=== PATIENT | male | born 1945 | race Caucasian/White ===

== ENCOUNTER 2023-02-01 05:30 | Observation (INO) | payer OTHER ==
[~2023-02-01] VITALS: Ht 180.3 cm; Wt 124.1 kg
[2023-02-01 06:35] LABS: BASOPHILS ABSOLUTE AUTO 0.03 K/mm3 (0.00-0.23); BASOPHILS PERCENT AUTO 0 % (0-2); EOSINOPHILS ABSOLUTE AUTO 0.01 K/mm3 (0.00-0.68); EOSINOPHILS PERCENT AUTO 0 % (0-6); Hematocrit 42.2 % (37.0-53.0); Hemoglobin 13.8 g/dL (13.5-17.5); IMMATURE GRAN ABSOLUTE AUTO 0.04 K/mm3 (0.00-0.10); IMMATURE GRAN PERCENT AUTO 0 % (0-1); LYMPHOCYTES ABSOLUTE AUTO 0.72 K/mm3 (0.84-5.20); LYMPHOCYTES PERCENT AUTO 6 % (21-46); MONOCYTES PERCENT AUTO 3 % (4-13); Mean Corpuscular HGB 29.2 pg (26.0-34.0); Mean Corpuscular HGB Conc 32.7 g/dL (31.5-36.5); Mean Corpuscular Volume 89 fL (80-100); Mean Platelet Volume 10.1 fL (9.1-12.4); NEUTROPHILS ABSOLUTE AUTO 10.55 K/mm3 (1.96-9.15); NEUTROPHILS PERCENT AUTO 90 % (41-73); Platelet Count 263 K/mm3 (150-400); RDW Coefficient Variation 13.2 % (11.7-14.2); RDW Standard Deviation 43.1 fL (35.1-46.3); Red Blood Cell Count 4.73 M/mm3 (4.30-5.90); White Blood Cell Count 11.75 K/mm3 (4.00-11.30)
[2023-02-01 06:36] LABS: Albumin/Globulin Ratio 0.9 (0.8-1.8); Bilirubin, Total 0.6 mg/dL (0.1-1.0); Bun/Creatinine Ratio 17.5 (12.0-20.0); Calcium, Blood 9.7 mg/dL (8.5-10.1); Creatinine, Blood 0.86 mg/dL (0.60-1.20); Globulin, Blood 4.3 g/dL (2.2-4.0); Potassium, Blood 4.3 mmol/L (3.5-5.5); Total Protein, Blood 8.3 g/dL (6.4-8.2)
[2023-02-01 10:55] VITALS: BP 159/75
--- NOTE | 2023-02-01 12:18 | NUR ---
ARRIVAL NOTE PT ARRIVED TO UNIT AT APPROX 1055, A/O X4 AND REPORTS NO PAIN AT THIS TIME. ABDOMEN APPEARS DISTENDED BUT PT REPORTS THAT IT IS HIS BASELINE. VITALS TAKEN AT THIS TIME. NO COMPLAINT OF NAUSEA OR VOMITING. BOWEL TONES ACTIVE X4.
[2023-02-01] MEDS ORDERED: DORZOPSO RIGHTEYE (12:25)
[2023-02-01 14:28] VITALS: BP 161/83
[2023-02-01] MEDS ORDERED: EUTHYROX125 MCG PO (18:25)
[2023-02-01] MEDS ORDERED: DABI150C PO (18:25)
[2023-02-01] MEDS ORDERED: LOSARTAN-HCTZ1 EACH PO (18:26)
--- NOTE | 2023-02-01 18:28 | NUR ---
SHIFT SUMMARY PT A&OX4, VSS/RA, TERENCE PO CLD, VOIDING/URINAL, AMB INDEPENDENTLY TO BRP, DENIES NEED FOR PAIN OR NAUSEA MED. PLAN FOR NPO MIDNIGHT FOR HIDA SCAN IN AM. WILL REPORT TO ONCOMING NOC RN.
[2023-02-01 22:25] VITALS: BP 126/66
--- NOTE | 2023-02-02 02:57 | NUR ---
PT VOID X 1. CONCENTRATED IN APPEARANCE 250 ML.I CALLED HOSPITALIST AND RECEIVED ORDERS FOR IV FLUIDS.
[2023-02-02 05:32] LABS: BASOPHILS ABSOLUTE AUTO 0.04 K/mm3 (0.00-0.23); BASOPHILS PERCENT AUTO 1 % (0-2); EOSINOPHILS ABSOLUTE AUTO 0.05 K/mm3 (0.00-0.68); EOSINOPHILS PERCENT AUTO 1 % (0-6); Hematocrit 37.8 % (37.0-53.0); Hemoglobin 12.1 g/dL (13.5-17.5); IMMATURE GRAN ABSOLUTE AUTO 0.03 K/mm3 (0.00-0.10); IMMATURE GRAN PERCENT AUTO 0 % (0-1); LYMPHOCYTES PERCENT AUTO 17 % (21-46); MONOCYTES ABSOLUTE AUTO 0.74 K/mm3 (0.16-1.47); MONOCYTES PERCENT AUTO 11 % (4-13); Mean Corpuscular HGB 28.9 pg (26.0-34.0); Mean Corpuscular Volume 90 fL (80-100); Mean Platelet Volume 10.6 fL (9.1-12.4); NEUTROPHILS ABSOLUTE AUTO 4.93 K/mm3 (1.96-9.15); NEUTROPHILS PERCENT AUTO 71 % (41-73); Platelet Count 226 K/mm3 (150-400); RDW Coefficient Variation 13.6 % (11.7-14.2); RDW Standard Deviation 45.1 fL (35.1-46.3); Red Blood Cell Count 4.18 M/mm3 (4.30-5.90); White Blood Cell Count 6.99 K/mm3 (4.00-11.30)
[2023-02-02 05:43] LABS: Bun/Creatinine Ratio 14.1 (12.0-20.0); Calcium, Blood 8.5 mg/dL (8.5-10.1); Creatinine, Blood 0.85 mg/dL (0.60-1.20); Potassium, Blood 4.1 mmol/L (3.5-5.5)
--- NOTE | 2023-02-02 06:42 | NUR ---
SUMMARY PT SLEPT MOST OF SHIFT. IV FLUIDS INFUSING.PLANS FOR HIDA TODAY.NO C/O.
[2023-02-02 07:38] VITALS: BP 148/86
--- NOTE | 2023-02-02 15:02 | NUR ---
DISCHARGE SUMMARY PT A&OX4, VSS/RA, TERENCE PO, VOIDING, AMB INDEPENDENTLY, DENIES PAIN, DENIES N&V, DRESSED SELF, SHOWERED TODAY, IV DC'D. DC INS PROVIDED. PT AND DAUGHTER REP UNDERSTANDING THEY NEED [facility], ADVISED PT ON DIET AND WHAT TO DO IF PAIN/N&V RETURNS.
== END 2023-02-02 15:00 | disposition home or self-care (01) ==
LOC: ER 05:30 → SURS 05:31
PROVIDERS: Emergency Medicine; ADMIT Family Medicine
DX: K80.00 Calculus of gallbladder with acute cholecystitis without obstruction (principal); I48.92 Unspecified atrial flutter; I48.91 Unspecified atrial fibrillation; I10 Essential (primary) hypertension; K21.9 Gastro-esophageal reflux disease without esophagitis; E78.5 Hyperlipidemia, unspecified
CPT/HCPCS: 36415; 74177; 76705; 78226; 80048; 80053; 83690; 85025; 93005; 93010; 96361; 96365; 96374-59; 96375; 96376; 99285-25; A9537; G0378; J0696; J1170; J2405; J7030; Q9967